=== PATIENT | female | born 1980 ===

== ENCOUNTER → 2018-12-09 | Day surgery (SDC) | payer OTHER | END | disposition home or self-care (01) | LOC: CIR.AMB 07:00 | PROVIDERS: Plastic Surgery | PROC: 0J083ZZ Alteration of Abdomen Subcutaneous Tissue and Fascia, Percutaneous Approach (ICD-10-PCS; 2018-12-09) | PROC: 0J0H3ZZ Alteration of Left Lower Arm Subcutaneous Tissue and Fascia, Percutaneous Approach (ICD-10-PCS; 2018-12-09) | PROC: 0J0D3ZZ Alteration of Right Upper Arm Subcutaneous Tissue and Fascia, Percutaneous Approach (ICD-10-PCS; 2018-12-09) | PROC: 0J0F3ZZ Alteration of Left Upper Arm Subcutaneous Tissue and Fascia, Percutaneous Approach (ICD-10-PCS; 2018-12-09) | PROC: 0J0G3ZZ Alteration of Right Lower Arm Subcutaneous Tissue and Fascia, Percutaneous Approach (ICD-10-PCS; 2018-12-09) | PROC: 0HQV0ZZ Repair Bilateral Breast, Open Approach (ICD-10-PCS; principal; 2018-12-09 07:00) | DX: N64.81 Ptosis of breast (principal); E88.1 Lipodystrophy, not elsewhere classified ==